=== PATIENT | male | born 1960 | race Caucasian/White ===

== ENCOUNTER 2019-05-23 15:11 | Emergency (ER) | payer BC, OTHER ==
--- NOTE | 2019-05-23 15:36 | ERPHSYRPT ---
- History of Present Illness Time Seen by Provider: 05/23/19 15:31 Source: patient Exam Limitations: no limitations Physician History: bleeding from mole right side of face.patient already had made an appointment for next Friday for removal of the lesion Timing/Duration: today Associated Symptoms: denies symptoms Allergies/Adverse Reactions: ciprofloxacin [From Cipro] Adverse Reaction (Intermediate, Verified 05/23/19 15: 23) Nausea meloxicam Adverse Reaction (Intermediate, Verified 05/23/19 15:23) Nausea - Review of Systems Constitutional: No Symptoms Eyes: No Symptoms Ears, Nose, & Throat: No Symptoms Respiratory: No Symptoms Cardiac: No Symptoms Abdominal/Gastrointestinal: No Symptoms Musculoskeletal: No Symptoms Skin: Other (skin lesion on right side of face) Significant Family History: no pertinent family hx - Physical Exam General Appearance: no apparent distress Eye Exam: PERRL/EOMI Ears, Nose, Throat Exam: normal ENT inspection Neck Exam: normal inspection Respiratory Exam: normal breath sounds Cardiovascular Exam: regular rate/rhythm Gastrointestinal/Abdomen Exam: soft Neurologic Exam: alert, oriented x 3 Skin Exam: other (nodular lesion on right side of face) - Course Nursing assessment & vital signs reviewed: Yes - Progress Progress: improved Progress Note: 05/23/19 15:33 surgiseal applied Counseled pt/family regarding: diagnosis, need for follow-up - Departure Departure Disposition: Home Clinical Impression: Nodule of cheek Condition: Stable Critical Care Time: No Referrals: RACHAEL DESAI [Primary Care Provider] - Instructions: Wound Care (DC) Additional Instructions: Discharge/Care Plan MELI BA was seen on 05/23/19 in the Emergency Room. The patient was counseled regarding Diagnosis,Lab results, Imaging studies, need for follow up and when to return to the Emergency Room. Prescriptions given: Discharge Note I have spoken with the patient and/or caregivers. I have explained the patient' s condition, diagnosis and treatment plan based on the information available to me at this time. I have answered the patient's and/or caregiver's questions and addressed any concerns. The patient and/or caregivers have as good understanding of the patient's diagnosis, condition and treatment plan as can be expected at this point. The vital signs have been stable. The patient's condition is stable and appropriate for discharge from the emergency department. The patient will pursue further outpatient evaluation with the primary care physician or other designated or consulting physician as outlined in the discharge instructions. The patient and/or caregivers are agreeable to this plan of care and follow-up instructions have been explained in detail. The patient and/or caregivers have received these instruction. The patient/and or caregivers are aware that any significant change in condition or worsening of symptoms should prompt an immediate return to this or the closest emergency department or call 911.
[2019-05-23 15:46] VITALS: BP 188/95; PULSE 77; O2SAT 95
== END 2019-05-23 15:46 | disposition home or self-care (01) ==
LOC: ED 15:11
DX: R22.0 Localized swelling, mass and lump, head (principal)
CPT/HCPCS: 99283